=== PATIENT | female | born 1980 | race Two or more races ===

== ENCOUNTER 2018-01-05 20:55 | Emergency (ER) | payer OTHER ==
[~2018-01-05] VITALS: Ht 154.9 cm; Wt 74.8 kg
[2018-01-05 21:33] VITALS: BP 119/83
[2018-01-05] MEDS ORDERED: KETOROLAC TROMETH 60MG/2ML VIAL IM ONE (23:15)
== END 2018-01-05 23:36 | disposition home or self-care (01) ==
LOC: ER 20:55
DX: K02.9 Dental caries, unspecified (principal); F17.210 Nicotine dependence, cigarettes, uncomplicated; E11.9 Type 2 diabetes mellitus without complications
CPT/HCPCS: 96372; 99283; J1885